=== PATIENT | female | born 1965 | race American Indian/Alaskan Native ===

== ENCOUNTER 2019-01-18 19:05 | Emergency (ER) | payer OTHER ==
[2019-01-18 19:14] VITALS: BP 128/83
[2019-01-18] MEDS ORDERED: DECADRON IM ONE (19:15)
[2019-01-18] MEDS ORDERED: ATROVENT IH ONE (19:15)
[2019-01-18] MEDS ORDERED: PROVENTIL IH ONE (19:15)
--- NOTE | 2019-01-18 19:15 | Emergency Department Report ---
Blank Doc - Documentation Documentation: This is a 53-year-old female that presents with SOB and wheezing after being e xposed to chemical smell. This initial assessment/diagnostic orders/clinical plan/treatment(s) is/are subject to change based on patient's health status, clinical progression and re- assessment by fellow clinical providers in the ED. Further treatment and workup at subsequent clinical providers discretion. Patient/guardians urged not to elope from the ED as their condition may be serious if not clinically assessed and managed. Initial orders include: 1- Patient sent to [facility] for further evaluation and treatment 2- breathing treatment/steroids 3- CXR
[2019-01-18] MEDS ORDERED: DUONEB *Not for PRN Use IH ONE (20:19)
[2019-01-18 21:00] LABS: Basophils # (Auto) 0.1 K/mm3 (0.0-0.1); Basophils % (Auto) 0.6 % (0.0-1.8); Eosinophils # (Auto) 0.2 K/mm3 (0.0-0.4); Eosinophils % (Auto) 1.9 % (0.0-4.3); Hematocrit 39.5 % (30.3-42.9); Hemoglobin 13.6 gm/dl (10.1-14.3); Lymphocytes # (Auto) 3.5 K/mm3 (1.2-5.4); Lymphocytes % (Auto) 32.7 % (13.4-35.0); Mean Corpuscular HGB Conc 34 % (30-34); Mean Corpuscular Volume 96 fl (79-97); Monocytes # (Auto) 0.8 K/mm3 (0.0-0.8); Monocytes % (Auto) 7.7 % (0.0-7.3); Platelet Count 326 K/mm3 (140-440); Red Blood Count 4.13 M/mm3 (3.65-5.03); Red Cell Distribution Width 13.7 % (13.2-15.2)
[2019-01-18 21:35] LABS: Alanine Aminotransferase 16 units/L (7-56); Albumin 4.3 g/dL (3.9-5); BUN/Creatinine Ratio 16; Blood Urea Nitrogen 11 mg/dL (7-17); Calcium 9.5 mg/dL (8.4-10.2); Hemolysis Index 10
--- NOTE | 2019-01-18 22:52 | XRay Report ---
CHEST 2 VIEWS INDICATION: DYSPNEA. COMPARISON: None. FINDINGS: Support devices: None. Heart: Within normal limits. Lungs/Pleura: No acute air space or interstitial disease. No significant pleural effusion. IMPRESSION: No acute findings. Signer Name: Franco Stearns MD Signed: 01/18/2019 10:47 PM Workstation Name: [id number]
--- NOTE | 2019-01-19 01:00 | Emergency Department Report ---
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 Patient states that she has used her albuterol nebulizers at home with no relief. Patient denies chest pain, fever, chills, nausea, sore throat, vomiting, abdominal pain, headache, dizziness, palpitations, change in vision or neck pain and back pain. MD Complaint: shortness of breath, cough, "asthma attack" -: Sudden, hour(s) (12), This morning Radiation: other (chest) Severity: severe Pain Scale: 7 Quality: aching Consistency: intermittent Improves With: bronchodilators Worsens With: nothing Known History Of: asthma, other (Sarcoidosis) Context: allergen exposure Associated Symptoms: denies other symptoms - Related Data Home Oxygen Therapy: No Previous Rx's Medication Instructions Recorded Last Taken Type Benzonatate [Tessalon Perles] 100 mg PO Q8HR #30 capsule 01/19/19 Unknown Rx Ibuprofen [Motrin] 800 mg PO Q8HR PRN #20 tablet 01/19/19 Unknown Rx methylPREDNISolone [Medrol 4MG 4 mg PO DAILY #21 tab.ds.pk 01/19/19 Unknown Rx DOSEPAK (21 tabs)] Allergies Allergy/AdvReac Type Severity Reaction Status Date / Time aspirin Allergy Shortness Verified 01/18/19 19:47 of Breath Sulfa (Sulfonamide Allergy Hives Verified 01/18/19 19:47 Antibiotics) ED Review of Systems ROS: Stated complaint: WHEEZING, SHORTNESS OF BREATH, DIZZY Other details as noted in HPI Constitutional: denies: chills, fever Eyes: denies: eye pain, eye discharge, vision change ENT: denies: ear pain, throat pain Respiratory: cough, shortness of breath, wheezing Cardiovascular: denies: chest pain, palpitations Endocrine: no symptoms reported Gastrointestinal: denies: abdominal pain, nausea, diarrhea Genitourinary: denies: urgency, dysuria, discharge Musculoskeletal: denies: back pain, joint swelling, arthralgia Skin: denies: rash, lesions Neurological: denies: headache, weakness, paresthesias Psychiatric: denies: anxiety, depression Hematological/Lymphatic: denies: easy bleeding, easy bruising ED Past Medical Hx - Social History Smoking Status: Never Smoker Substance Use Type: None - Medications Home Medications: Home Medications Medication Instructions Recorded Confirmed Last Taken Type Benzonatate [Tessalon Perles] 100 mg PO Q8HR #30 capsule 01/19/19 Unknown Rx Ibuprofen [Motrin] 800 mg PO Q8HR PRN #20 tablet 01/19/19 Unknown Rx methylPREDNISolone [Medrol 4MG 4 mg PO DAILY #21 tab.ds.pk 01/19/19 Unknown Rx DOSEPAK (21 tabs)] ED Physical Exam - General Limitations: No Limitations General appearance: alert, in no apparent distress - Head Head exam: Present: atraumatic, normocephalic, normal inspection - Eye Eye exam: Present: normal appearance, PERRL, EOMI - ENT ENT exam: Present: normal exam, normal orophraynx, mucous membranes moist, TM's normal bilaterally, normal external ear exam - Neck Neck exam: Present: normal inspection, full ROM - Respiratory Respiratory exam: Present: normal lung sounds bilaterally, wheezes (diffusely coarse wheezes). Absent: respiratory distress, rhonchi, chest wall tenderness, accessory muscle use, decreased breath sounds - Cardiovascular Cardiovascular Exam: Present: normal rhythm, tachycardia, normal heart sounds. Absent: systolic murmur, diastolic murmur, rubs, gallop - GI/Abdominal GI/Abdominal exam: Present: soft, normal bowel sounds. Absent: distended, tenderness, guarding, rebound, hyperactive bowel sounds, hypoactive bowel sounds, organomegaly, mass - Rectal Rectal exam: Present: deferred - Extremities Exam Extremities exam: Present: normal inspection, full ROM, normal capillary refill - Back Exam Back exam: Present: normal inspection, full ROM. Absent: tenderness, CVA tenderness (L), muscle spasm - Neurological Exam Neurological exam: Present: alert, oriented X3, CN II-XII intact, normal gait, reflexes normal - Psychiatric Psychiatric exam: Present: normal affect, normal mood - Skin Skin exam: Present: warm, dry, intact, normal color. Absent: rash ED Course Vital Signs 01/18/19 01/18/19 01/18/19 19:12 20:29 20:36 Temperature 98.4 F Pulse Rate 123 H Pulse Rate [ 93 H 96 H Bilateral] Respiratory 18 Rate Respiratory 96 H 20 Rate [Bilateral ] Blood Pressure 128/83 O2 Sat by Pulse 94 Oximetry - Reevaluation(s) Reevaluation #1: 01/19/19 01:02 Patient is alert and oriented 3 and is tachycardic, and anxious and appears to be in no acute distress. Labs were drawn and the results are unremarkable. Chest x-ray shows no acute cardiopulmonary abnormalities. EKG shows sinus tachycardia with a ventricular rate of 103 bpm, significant improvement from patient's initial ventricular rate of 123 beats per minutes. There is no ST or T-wave abnormalities on EKG. Patient received more neb treatment twice and albuterol neb as well as a treatment, patient is received steroid in the ED. On reevaluation, the wheezing has resolved with bronchodilator treatment. And patient felt much better with the treatment. Patient reportedly has albuterol nebulizer and inhalers at home. [facility] and advised to follow up with her primary care physician in 2-3 days for reevaluation or return to the ED immediately if symptoms get worse. ED Medical Decision Making - Lab Data Result diagrams: 01/18/19 20:51 01/18/19 20:51 - EKG Data Rate: tachycardia - EKG Data Interpretation: normal EKG 01/19/19 01:06 Sinus tachycardia, ventricular rate of 103 bpm; No ST or T wave abnormalities - Radiology Data Radiology results: report reviewed, image reviewed Chest x-ray: No acute cardiopulmonary abnormalities - Medical Decision Making Patient is alert and oriented 3 and is tachycardic, and anxious and appears to be in no acute distress. Labs were drawn and the results are unremarkable. Chest x-ray shows no acute cardiopulmonary abnormalities. EKG shows sinus tachycardia with a ventricular rate of 103 bpm, significant improvement from patient's initial ventricular rate of 123 beats per minutes. There is no ST or T-wave abnormalities on EKG. Patient received more neb treatment twice and albuterol neb as well as a treatment, patient is received steroid in the ED. On reevaluation, the wheezing has resolved with bronchodilator treatment. And patient felt much better with the treatment. Patient reportedly has albuterol nebulizer and inhalers at home. Patient was discharged home in Med[facility], Tessalon Perles and Motrin and advised to follow up with her primary care physician in 2-3 days for reevaluation or return to the ED immediately if symptoms get worse. - Differential Diagnosis Asthma exacerbation, acute bronchitis, allergic reaction, rhinitis, ACS Critical care attestation.: If time is entered above; I have spent that time in minutes in the direct care of this critically ill patient, excluding procedure time. ED Disposition Clinical Impression: Shortness of breath, Acute asthmatic bronchitis Disposition: TO HOME OR SELFCARE Is pt being admited?: No Does the pt Need Aspirin: No Condition: Stable Instructions: Acute Bronchitis (ED), Asthma (ED) Additional Instructions: Take medications with food, drink plenty of fluids and follow up with your primary care physician in 5-7 days for reevaluation. Return to the ED immediately if symptoms get worse. Prescriptions: methylPREDNISolone [Medrol 4MG DOSEPAK (21 tabs)] 4 mg PO DAILY #21 tab.ds.pk Ibuprofen [Motrin] 800 mg PO Q8HR PRN #20 tablet PRN Reason: Pain , Severe (7-10) Benzonatate [Tessalon Perles] 100 mg PO Q8HR #30 capsule Referrals: [facility] [Outside] - 3-5 Days Forms: Work/School Release Form(ED) Time of Disposition: 00:57 Print Language: LAO
== END 2019-01-19 01:10 | disposition home or self-care (01) ==
LOC: ED 19:05
DX: J45.909 Unspecified asthma, uncomplicated (principal); Z88.8 Allergy status to other drugs, medicaments and biological substances; Z88.2 Allergy status to sulfonamides; Z79.899 Other long term (current) drug therapy
CPT/HCPCS: 36415; 71046; 80053; 84484; 85025; 93005; 93010; 94640; 96372; 99284; J1100; 94644

== ENCOUNTER 2019-06-18 08:29 | Emergency (ER) | payer OTHER ==
[2019-06-18] MEDS ORDERED: dexAMETHasone 20 MG/5 ML VIAL IM ONE (08:39)
[2019-06-18] MEDS ORDERED: ALBUTEROL 2.5 MG/3 ML NEBU IH ONE ×2 (08:39→14:40)
[2019-06-18] MEDS ORDERED: IPRATROPIUM 0.02% NEBU 2.5 ML IH ONE (08:40)
--- NOTE | 2019-06-18 09:17 | Event Note ---
ED Screening Note Date of service: 06/18/19 Time: 08:38 ED Screening Note: 53 y/o female comes in for resp distress times 2 days. This initial assessment/diagnostic orders/clinical plan/treatment(s) is/are subject to change based on patients health status, clinical progression and re-assessment by fellow clinical providers in the ED. Further treatment and workup at subsequent clinical providers discretion. Patient/guardian urged not to elope from the ED as their condition may be serious if not clinically assessed and managed. Initial orders include:
[2019-06-18] MEDS ORDERED: methylPREDNISolone Sod Succinate 125 MG/2 ML INJ IV ONE (09:49)
[2019-06-18] MEDS ORDERED: MAGNESIUM SULFATE 2 GM/50 ML BAG IV ONE (09:50)
--- NOTE | 2019-06-18 09:56 | Emergency Department Report ---
HPI - General Chief Complaint: Adult Asthma Time Seen by Provider: 06/18/19 08:38 - HPI HPI: 53-year-old -[place] female presents to the emergency department with a complaint of a 2 day history of shortness of breath, wheezing, coughing and some chest discomfort. She has a history of asthma and sarcoidosis. She has been using her Advair, albuterol inhaler and nebulizer treatments without any relief. She is on some steroids, 20 mg of prednisone, but she did not take it today. The chest pain is midsternal to left-sided. She denies any fever, nausea, vomiting, diaphoresis, back pain. No recent travel or sick contacts at home. 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 ED Past Medical Hx - Past Medical History Previous Medical History?: Yes Hx Hypertension: Yes Hx Asthma: Yes Additional medical history: SARCODOSIS - Surgical History Past Surgical History?: Yes Additional Surgical History: X 2 - Social History Smoking Status: Never Smoker Substance Use Type: None - Medications Home Medications: Home Medications Medication Instructions Recorded Confirmed Last Taken Type Benzonatate [Tessalon Perles] 100 mg PO Q8HR #30 capsule 01/19/19 Unknown Rx Ibuprofen [Motrin] 800 mg PO Q8HR PRN #20 tablet 01/19/19 Unknown Rx methylPREDNISolone [Medrol 4MG 4 mg PO DAILY #21 tab.ds.pk 01/19/19 Unknown Rx DOSEPAK (21 tabs)] Azithromycin [Zithromax Z-JASON] 250 mg PO DAILY #6 tab 06/18/19 Unknown Rx predniSONE [Deltasone] 20 mg PO BID #6 tab 06/18/19 Unknown Rx ED Review of Systems ROS: Stated complaint: CHEST PAIN/FAVIAN Other details as noted in HPI Comment: All other systems reviewed and negative Constitutional: denies: chills, fever Eyes: denies: eye pain, vision change ENT: denies: ear pain, throat pain Respiratory: cough, shortness of breath, wheezing Cardiovascular: chest pain. denies: palpitations Gastrointestinal: denies: abdominal pain, vomiting Genitourinary: denies: dysuria, discharge Musculoskeletal: denies: back pain, arthralgia Skin: denies: rash, lesions Neurological: denies: headache, weakness Physical Exam - Physical Exam Vital Signs: Vital Signs 06/18/19 08:36 Temperature 98.3 F Pulse Rate 97 H Respiratory 20 Rate Blood Pressure 153/88 O2 Sat by Pulse 97 Oximetry Physical Exam: GENERAL: The patient is well-developed well-nourished. HENT: Normocephalic. Atraumatic. Patient has moist mucous membranes. EYES: Extraocular motions are intact. Pupils equal reactive to light bilaterally. NECK: Supple. Trachea is midline. CHEST/LUNGS: Mild wheezing throughout the chest. No tachypnea or accessory muscle use. There is no respiratory distress noted. HEART/CARDIOVASCULAR: Regular. There is no tachycardia. There is no murmur. ABDOMEN: Abdomen is soft, nontender. Patient has normal bowel sounds. There is no abdominal distention. SKIN: Skin is warm and dry. NEURO: The patient is awake, alert, and oriented. The patient is cooperative. The patient has no focal neurologic deficits. Normal speech. MUSCULOSKELETAL: There is no tenderness or deformity. There is no evidence of acute injury. ED Course Vital Signs 06/18/19 08:36 Temperature 98.3 F Pulse Rate 97 H Respiratory 20 Rate Blood Pressure 153/88 O2 Sat by Pulse 97 Oximetry ED Medical Decision Making - Lab Data Result diagrams: 06/18/19 10:24 06/18/19 10:24 - EKG Data -: EKG Interpreted by Me EKG shows normal: sinus rhythm, axis, intervals, QRS complexes, ST-T waves Rate: normal - EKG Data When compared to previous EKG there are: previous EKG unavailable Interpretation: normal EKG - Radiology Data Radiology results: report reviewed, image reviewed interpreted by me: Chest x-ray does not show any acute process. There are no pleural effusions, obvious pneumonia and there is no pneumothorax. CTA CHEST WITH IV CONTRAST INDICATION / CLINICAL INFORMATION: Shortness of breath, elevated dimer. TECHNIQUE: Axial CT images were obtained through the est after injection of 100 L Omnipaque 350 IV contrast. 3 plane MIP and/or 3D reconstructions were produced. All CT scans at this location are performed using CT dose reduction for ALARA by means of automated exposure control. COMPARISON: Same-day chest radiograph FINDINGS: PULMONARY ARTERIES: No pulmonary emboli. THORACIC AORTA: No significant abnormality. HEART: No significant abnormality. CORONARY ARTERIES: No significant calcification. PLEURA: No pleural effusion. No pneumothorax. LYMPH NODES: No adenopathy. LUNGS: In the posterior and dependent portions of the lower lobes, there is mild airspace opacity present, which was not appreciable on the previous radiograph. ADDITIONAL FINDINGS: None. UPPER ABDOMEN: No acute findings. SKELETAL STRUCTURES: No significant osseous abnormality. IMPRESSION: 1. No CT evidence for pulmonary embolism. 2. Mild bibasilar dependent airspace opacification is nonspecific, with differential considerations including mild atelectatic changes, pneumonia, and less likely aspirated material. There is no densely consolidated lung parenchyma. - Medical Decision Making This patient presents with a 2 day history of some shortness of breath, wheezing and some midsternal to left-sided chest discomfort that is mild. EKG is normal without ST elevation MS, ischemia or dysrhythmia. Patient's labs have been mostly unremarkable including negative troponins 2, a low BNP, normal CBC and metabolic panel, but the patient did have a slightly elevated an equivocal d- dimer. CT angiography did not show any signs of pulmonary embolus but was read by radiology as having some nonspecific mild bibasilar airspace disease that c ould be atelectasis, pneumonia. Patient was given 2 different rounds of breathing treatments, steroids, magnesium and upon reevaluation she is feeling greatly improved. Most of the patient's symptoms may be related to her asthma and/or sarcoidosis. However given the patient's chest discomfort she will be referred to cardiology. She is low on the MARGARET and heart score. Her information has been sent to [facility] cardiology for close outpatient follow-up. Patient says that she has enough albuterol and her inhalers at home. She will be given a few days of steroids and a Z-Jason. She will return to the ER with any worsening of her symptoms or any acute distress. - Differential Diagnosis asthma, pneumonia, bronchitis, PE, MS Critical Care Time: No Critical care attestation.: If time is entered above; I have spent that time in minutes in the direct care of this critically ill patient, excluding procedure time. ED Disposition Clinical Impression: Sarcoidosis Asthma exacerbation Qualifiers: Asthma severity: unspecified severity Chest pain Qualifiers: Chest pain type: unspecified Qualified Code(s): R07.9 - Chest pain, unspecified Disposition: - TO HOME OR SELFCARE Is pt being admited?: No Condition: Stable Instructions: Chest Pain (ED), Asthma (ED) Additional Instructions: Please follow-up with your primary care physician in the next few days. Return to the emergency Department with any return of your chest pain, worsening of your symptoms, or with any acute distress. I am giving your contact information to [facility] cardiology and someone should be contacting you shortly for close outpatient follow-up. Prescriptions: predniSONE [Deltasone] 20 mg PO BID #6 tab Azithromycin [Zithromax Z-JASON] 250 mg PO DAILY #6 tab Referrals: [facility] [Other] - 2-3 Days [facility] [Provider Group] - 2-3 Days Time of Disposition: 14:33
[2019-06-18 10:49] LABS: Basophils # (Auto) 0.1 K/mm3 (0.0-0.1); Basophils % (Auto) 0.7 % (0.0-1.8); Eosinophils # (Auto) 0.2 K/mm3 (0.0-0.4); Eosinophils % (Auto) 2.8 % (0.0-4.3); Hematocrit 38.3 % (30.3-42.9); Hemoglobin 12.9 gm/dl (10.1-14.3); Lymphocytes # (Auto) 4.3 K/mm3 (1.2-5.4); Lymphocytes % (Auto) 48.9 % (13.4-35.0); Mean Corpuscular HGB Conc 34 % (30-34); Mean Corpuscular Volume 97 fl (79-97); Monocytes # (Auto) 0.9 K/mm3 (0.0-0.8); Monocytes % (Auto) 10.7 % (0.0-7.3); Platelet Count 324 K/mm3 (140-440); Red Blood Count 3.97 M/mm3 (3.65-5.03); Red Cell Distribution Width 14.4 % (13.2-15.2)
--- NOTE | 2019-06-18 11:02 | XRay Report ---
CHEST 1 VIEW INDICATION / CLINICAL INFORMATION: Shortness of breath. COMPARISON: Chest radiograph 01/18/2019 FINDINGS: SUPPORT DEVICES: None. HEART / MEDIASTINUM: No significant abnormality. LUNGS / PLEURA: No significant pulmonary or pleural abnormality. No pneumothorax. IMPRESSION: 1. No acute finding. Signer Name: Orville Don MD Signed: 06/18/2019 10:57 AM Workstation Name: [id number]
[2019-06-18 11:04] LABS: BUN/Creatinine Ratio 18; Blood Urea Nitrogen 11 mg/dL (7-17); Hemolysis Index 9
--- NOTE | 2019-06-18 12:43 | Cat Scan Report ---
CTA CHEST WITH IV CONTRAST INDICATION / CLINICAL INFORMATION: Shortness of breath, elevated dimer. TECHNIQUE: Axial CT images were obtained through the chest after injection of 100 L Omnipaque 350 IV contrast. 3 plane MIP and/or 3D reconstructions were produced. All CT scans at this location are performed using CT dose reduction for ALARA by means of automated exposure control. COMPARISON: Same-day chest radiograph FINDINGS: PULMONARY ARTERIES: No pulmonary emboli. THORACIC AORTA: No significant abnormality. HEART: No significant abnormality. CORONARY ARTERIES: No significant calcification. PLEURA: No pleural effusion. No pneumothorax. LYMPH NODES: No adenopathy. LUNGS: In the posterior and dependent portions of the lower lobes, there is mild airspace opacity pre sent, which was not appreciable on the previous radiograph. ADDITIONAL FINDINGS: None. UPPER ABDOMEN: No acute findings. SKELETAL STRUCTURES: No significant osseous abnormality. IMPRESSION: 1. No CT evidence for pulmonary embolism. 2. Mild bibasilar dependent airspace opacification is nonspecific, with differential considerations i ncluding mild atelectatic changes, pneumonia, and less likely aspirated material. There is no densely consolidated lung parenchyma. Signer Name: Orville Don MD Signed: 06/18/2019 12:39 PM Workstation Name: [id number]
[2019-06-18 13:03] VITALS: BP 134/80
== END 2019-06-18 15:17 | disposition home or self-care (01) ==
LOC: ED 08:29
DX: J45.901 Unspecified asthma with (acute) exacerbation (principal); D86.9 Sarcoidosis, unspecified; I10 Essential (primary) hypertension
CPT/HCPCS: 36415; 71045; 71275; 80048; 83880; 84484; 85025; 85379; 93005; 93010; 94640; 96365; 96375; 99285; J2930; J3475; Q9967; 94644